=== PATIENT | female | born 1945 | race Hispanic/Latino ===

== ENCOUNTER 2018-07-31 03:30 | Observation (INO) | payer MEDICARE ==
[2018-07-31] MEDS ORDERED: Oxymetazoline 0.05% Nasal Spray (30 ml) NS STA (03:48)
--- NOTE | 2018-07-31 03:55 | ED PDOC ---
Arrival/HPI - General Chief Complaint: ENT Problem Time Seen by Provider: 07/31/18 03:39 Historian: Patient - History of Present Illness Narrative History of Present Illness (Text): 72 year old female, whose past medical history includes type I diabetes, hypertension, thyroid issues, and amyloidosis cancer on remission, presents to the emergency department complaining of nose bleed to the right nostril that woke her up 1 hour prior to arrival. Patient states she pinched her nostrils for 30 minutes, but her nose kept bleeding. Patient denies being on blood thinners. Patient denies any fall or trauma. Patient denies any fever, chills, chest pain, shortness of breath, nausea, vomiting, diarrhea, urinary symptoms, back pain, neck pain, headache, dizziness, or any other complaints. PMD: Time/Duration: Prior to Arrival, 1 hour Symptom Onset: Sudden Symptom Course: Unchanged Activities at Onset: Sleeping Context: Home Past Medical History - Provider Review Nursing Documentation Reviewed: Yes - Infectious Disease Hx of Infectious Diseases: None - Cardiac Hx Hypertension: Yes - Endocrine/Metabolic Hx Diabetes Mellitus Type 2: Yes - Hematological/Oncological Other/Comment: stem cell transplant - Psychiatric Hx Substance Use: No - Anesthesia Hx Anesthesia: No Hx Anesthesia Reactions: No Hx Malignant Hyperthermia: No Family/Social History - Physician Review Nursing Documentation Reviewed: Yes Family/Social History: No Known Family HX Smoking Status: Never Smoked Hx Alcohol Use: No Hx Substance Use: No Allergies/Home Meds Allergies/Adverse Reactions: Allergies filgrastim [From Neupogen] Allergy (Verified 07/31/18 03:43) RASH Home Medications: Home Meds Medication Instructions Recorded Confirmed Allopurinol [Zyloprim] 1 tab PO DAILY 07/31/18 07/31/18 Aspirin [Adult Low Dose Aspirin EC] 81 mg PO DAILY 07/31/18 07/31/18 Cholecalciferol (Vitamin D3) 1 cap PO DAILY 07/31/18 07/31/18 [Vitamin D3] Fenofibrate 54 mg PO DAILY 07/31/18 07/31/18 Insulin Lispro Mix 75/25 [HumaLOG See Protocol SC BID 07/31/18 07/31/18 Mix 75/25] Levothyroxine [Synthroid] 50 mcg PO DAILY 07/31/18 07/31/18 Losartan Potassium 1 tab PO DAILY 07/31/18 07/31/18 [place]-3S/Dha/Epa/Fish Oil [Fish 1 cap PO DAILY 07/31/18 07/31/18 Oil [place]-3 Softgel] Rivastigmine 4.6 mg/24 hr [Exelon 1 ea TD 07/31/18 4.6 Patch] Rosuvastatin Calcium [Crestor] 20 mg PO DAILY 07/31/18 07/31/18 Sodium Bicarbonate Tab 650 mg PO BID 07/31/18 07/31/18 Vit B12/Levomefolate/Vit B6/B2 1 tab PO DAILY 07/31/18 07/31/18 [Cerefolin Caplet] amLODIPine [Norvasc] 5 mg PO DAILY 07/31/18 07/31/18 Review of Systems - Physician Review All systems were reviewed & negative as marked: Yes - Review of Systems Constitutional: absent: Fatigue, Fevers, Other (chills) Eyes: absent: Vision Changes, Eye Pain ENT: Epistaxis. absent: Hearing Changes Respiratory: absent: SOB Cardiovascular: absent: Chest Pain Gastrointestinal: absent: Abdominal Pain, Diarrhea, Nausea, Vomiting, Appetite Changes Genitourinary Female: absent: Dysuria, Frequency, Hematuria Musculoskeletal: absent: Back Pain, Neck Pain Skin: absent: Rash, Pruritis Neurological: absent: Headache, Dizziness Physical Exam Vital Signs Reviewed: Yes Vital Signs Temp Pulse Resp BP Pulse Ox 07/31/18 03:41 98.2 F 110 H 18 142/87 99 Temperature: Afebrile Blood Pressure: Normal Pulse: Tachycardic Respiratory Rate: Normal Appearance: Positive for: Well-Appearing, Non-Toxic, Comfortable Pain Distress: None Mental Status: Positive for: Alert and Oriented X 3 - Systems Exam Head: Present: Atraumatic, Normocephalic Pupils: Present: PERRL Extroacular Muscles: Present: EOMI Conjunctiva: Present: Normal Ears: Present: Normal, NORMAL TM Mouth: Present: Moist Mucous Membranes Pharnyx: Present: Normal. No: ERYTHEMA, EXUDATE Nose (External): Present: Atraumatic Nose (Internal): Present: Epistaxis (R nare), Other (bleeding to the right nare). No: Septal Hematoma Neck: Present: Normal Range of Motion. No: Meningeal Signs, MIDLINE TENDERNESS Respiratory/Chest: Present: Clear to Auscultation, Good Air Exchange. No: Respiratory Distress, Accessory Muscle Use Cardiovascular: Present: Regular Rate and Rhythm, Normal S1, S2. No: Murmurs Abdomen: No: Tenderness, Distention, Peritoneal Signs Back: Present: Normal Inspection. No: CVA Tenderness, Midline Tenderness Upper Extremity: Present: Normal Inspection. No: Cyanosis, Edema Lower Extremity: Present: Normal Inspection. No: Edema Neurological: Present: GCS=15, CN II-XII Intact, Speech Normal Skin: Present: Warm, Dry, Normal Color. No: Rashes Psychiatric: Present: Alert, Oriented x 3, Normal Insight, Normal Concentration Medical Decision Making ED Course and Treatment: 07/31/18 03:49 Impression: 72 year old female presents complaining of epistaxis to the right naris that woke her up from sleep 1 hour prior to arrival. No blood thinners, no trauma. Pt in NAD, mentating well protecting airway. No posterior oropharyngeal blood noted. Differential Diagnosis included but are not limited to: Plan: -- Labs -- Afrin 0.05% -- Epistaxis management -- Reassess and disposition Prior Visits: Notes and results from previous visits were reviewed. Progress Notes: 07/31/18 04:47 Patient refuses rhino rocket epistaxis management procedure. Bleeding stopped spontaneously to the right nare after afrin spray no posterior oral pharyngeal blood noted. 07/31/18 04:52 LILLY on labs, H&H unremarkable. Case discussed with medical case manager and Dr. Nguyen who is aware and agrees with the plan. Accepts patient into hospitalist service. - Lab Interpretations I have reviewed the lab results: Yes - Scribe Statement The provider has reviewed the documentation as recorded by the Cristina Davis Provider Scribe Attestation: All medical record entries made by the Cristina were at my direction and personally dictated by me. I have reviewed the chart and agree that the record accurately reflects my personal performance of the history, physical exam, medical decision making, and the department course for this patient. I have also personally directed, reviewed, and agree with the discharge instructions and disposition. Disposition/Present on Arrival - Present on Arrival Any Indicators Present on Arrival: No History of DVT/PE: No History of Uncontrolled Diabetes: No Urinary Catheter: No History of Decub. Ulcer: No History Surgical Site Infection Following: None - Disposition Have Diagnosis and Disposition been Completed?: Yes Diagnosis: Anterior epistaxis, LILLY (acute kidney injury) Disposition: HOSPITALIZED Disposition Time: 04:56 Patient Problems: Current Active Problems Problem Status Onset Anterior epistaxis Acute LILLY (acute kidney injury) Acute Condition: STABLE
[2018-07-31 04:14] LABS: HEMOGLOBIN 11.7 g/dL (12.0-16.0); MEAN CELL VOLUME 85.5 fl (80.0-105.0); MEAN CORPUSCULAR HEMOGLOBIN 28.8 pg (25.0-35.0); RBC 4.06 {null, 10^6/uL} (3.5-6.1); WHITE BLOOD COUNT 10.5 {null, 10^3/uL} (4.5-11.0)
[2018-07-31 04:15] LABS: BASO # 0.05 {null, K/mm3} (0.0-2.0); BASO % 0.5 % (0.0-3.0); EOS # 0.4 (0.0-0.7); EOS % 3.3 % (1.5-5.0); LYMPH # 2.4 (1.2-3.4); LYMPH % 22.4 % (22.0-35.0); MEAN CORPUSCULAR HGB CONC 33.7 g/dl (31.0-37.0); MEAN PLATELET VOLUME 9.8 fl (7.0-11.0); MONO # 0.9 (0.1-0.6); MONO % 8.7 % (1.0-6.0); RED CELL DISTRIBUTION WIDTH 14.5 % (11.5-14.5)
[2018-07-31 04:18] LABS: INR 1.13; PARTIAL THROMBOPLASTIN TIME 32.4 Seconds (26.9-38.3); PROTHROMBIN TIME 12.5 SECONDS (9.4-12.5)
[2018-07-31 04:28] LABS: ALBUMIN 3.6 g/dL (3.0-4.8)
[2018-07-31] MEDS ORDERED: Sodium Chloride 0.9% 1,000 ML IV STA (05:10)
[2018-07-31] MEDS ORDERED: Dextrose 50% SYRINGE Inj (50 ml) IV PRN (05:13)
[2018-07-31] MEDS ORDERED: Sodium Chloride 0.9% 1,000 ML IV SCH ×2 (05:15→18:52)
--- NOTE | 2018-07-31 05:15 | CP.PCM.HP ---
<Kurt Hanson - Last Filed: 07/31/18 05:59> History of Present Illness - History of Present Illness History of Present Illness: Kurt Hanson PGY2 H&P for Hospitalist Service 72 year old female with past medical history of DM2, hypertension, hypothyroidism, and amyloidosis, presented to the emergency department complaining of nose bleed of the right nostril that woke her up an hour before her arrival to the ED. Patient states she tried to holld pressure on her nose but the bleeding did not subside. Patient is not currently on any blood thinners and denies trauma. denies being on blood thinners. Patient denies any fever, chills, chest pain, shortness of breath, nausea, vomiting, diarrhea, urinary symptoms, back pain, neck pain, headache, dizziness, or any other complaints at this time. PMH:DM2, hypertension, hypothyroidism, and amyloidosis PSH: denies Allergies: filgrastim Family: denies Social: stopped tobacco use in 2006, before that 40 year history, denies alcohol or illicit drug use Meds: See [facility] Nephrology: Nehemiah Present on Admission - Present on Admission Any Indicators Present on Admission: No Review of Systems - Constitutional Constitutional: absent: Anorexia, Chills, Fever, Headache, Weakness - EENT Nose/Mouth/Throat: Epistaxis. absent: Sinus Pain, Sinus Pressure, Bleeding Gums, Dysphagia, Sore Throat - Cardiovascular Cardiovascular: absent: Chest Pain, Dyspnea - Respiratory Respiratory: absent: Cough, Dyspnea, Hemoptysis - Neurological Neurological: absent: Syncope Past Patient History - Infectious Disease Hx of Infectious Diseases: None - Past Social History Smoking Status: Never Smoked - CARDIAC Hx Hypertension: Yes - ENDOCRINE/METABOLIC Hx Diabetes Mellitus Type 2: Yes - HEMATOLOGICAL/ONCOLOGICAL Other/Comment: stem cell transplant - PSYCHIATRIC Hx Substance Use: No - ANESTHESIA Hx Anesthesia: No Hx Anesthesia Reactions: No Hx Malignant Hyperthermia: No Meds Allergies/Adverse Reactions: Allergies Allergy/AdvReac Type Severity Reaction Status Date / Time filgrastim [From Neupogen] Allergy RASH Verified 07/31/18 03:43 Physical Exam - Constitutional Appears: Non-toxic, No Acute Distress - Head Exam Head Exam: ATRAUMATIC, NORMAL INSPECTION, NORMOCEPHALIC - Eye Exam Eye Exam: EOMI, Normal appearance - ENT Exam Additional comments: right nares has epistaxis - Respiratory Exam Respiratory Exam: Clear to Auscultation Bilateral, NORMAL BREATHING PATTERN - Cardiovascular Exam Cardiovascular Exam: REGULAR RHYTHM, +S1, +S2 - GI/Abdominal Exam GI & Abdominal Exam: Soft. absent: Tenderness - Neurological Exam Neurological exam: Alert, Oriented x3 Results - Vital Signs Recent Vital Signs: Last Vital Signs Temp 98.2 F 07/31/18 03:41 Pulse 110 H 07/31/18 03:41 Resp 18 07/31/18 03:41 BP 142/87 07/31/18 03:41 Pulse Ox 99 07/31/18 03:41 - Labs Result Diagrams: 07/31/18 04:00 07/31/18 04:00 Labs: Laboratory Results - last 24 hr 07/31/18 07/31/18 07/31/18 04:00 04:00 04:00 WBC 10.5 RBC 4.06 Hgb 11.7 L Hct 34.7 L MCV 85.5 D MCH 28.8 MCHC 33.7 RDW 14.5 Plt Count 326 MPV 9.8 Neut % (Auto) 65.1 Lymph % (Auto) 22.4 Atlantic % (Auto) 8.7 H Eos % (Auto) 3.3 Baso % (Auto) 0.5 Lymph # (Auto) 2.4 [place] # (Auto) 0.9 H Eos # (Auto) 0.4 Baso # (Auto) 0.05 Absolute Neuts (auto) 6.81 H PT 12.5 INR 1.13 APTT 32.4 Sodium 136 Potassium 4.1 Chloride 106 Carbon Dioxide 19 L Anion Gap 15 BUN 63 H Creatinine 4.2 H Est GFR ( Amer) 13 Est GFR (Non-Af Amer) 10 Random Glucose 206 H Calcium 9.0 Total Bilirubin 0.3 AST 30 ALT 8 Alkaline Phosphatase 100 Total Protein 7.0 Albumin 3.6 Globulin 3.5 Albumin/Globulin Ratio 1.0 L BBK History Checked 07/31/18 04:00 WBC RBC Hgb Hct MCV MCH MCHC RDW Plt Count MPV Neut % (Auto) Lymph % (Auto) Atlantic % (Auto) Eos % (Auto) Baso % (Auto) Lymph # (Auto) [place] # (Auto) Eos # (Auto) Baso # (Auto) Absolute Neuts (auto) PT INR APTT Sodium Potassium Chloride Carbon Dioxide Anion Gap BUN Creatinine Est GFR ( Amer) Est GFR (Non-Af Amer) Random Glucose Calcium Total Bilirubin AST ALT Alkaline Phosphatase Total Protein Albumin Globulin Albumin/Globulin Ratio BBK History Checked No verified bt Assessment & Plan - Assessment and Plan (Free Text) Assessment: 72 year old female with past medical history of DM2, hypertension, hypothyroi dism, and amyloidosis, presented to the emergency department complaining of nose bleed of the right nostril that woke her up an hour before her arrival to the ED. Patient was found to have elevated BUN/Cr. Plan: 1. Epistaxis -Hgb: 11.7 -monitor -patient did not want any packing to be placed -PT/INR within normal range -hold home aspirin 81mg 2. Elevated BUN/Cr -CKD v LILLY on top of CKD -BUN : 63 Cr: 4.2 -NS@100 -urine lytes pending -urine microalbumin pending -continue home meds 3. DM -hemoglobin A1C pending -Insulin sliding scale medium -ACHS -monitor 4. HTN-chronic -holding losartan due to elevated kidney function -contonue amlodipine 5mg Diet: HHD DVT Prophylaxis: Sequential Compression Device <Fina Nguyen - Last Filed: 07/31/18 11:49> Results - Vital Signs Recent Vital Signs: Last Vital Signs Temp 98.2 F 07/31/18 03:41 Pulse 97 H 07/31/18 07:09 Resp 18 07/31/18 07:09 BP 164/81 H 07/31/18 07:09 Pulse Ox 100 07/31/18 07:09 - Labs Result Diagrams: 07/31/18 04:00 07/31/18 04:00 Labs: Laboratory Results - last 24 hr 07/31/18 07/31/18 07/31/18 04:00 04:00 04:00 WBC 10.5 RBC 4.06 Hgb 11.7 L Hct 34.7 L MCV 85.5 D MCH 28.8 MCHC 33.7 RDW 14.5 Plt Count 326 MPV 9.8 Neut % (Auto) 65.1 Lymph % (Auto) 22.4 Atlantic % (Auto) 8.7 H Eos % (Auto) 3.3 Baso % (Auto) 0.5 Lymph # (Auto) 2.4 [place] # (Auto) 0.9 H Eos # (Auto) 0.4 Baso # (Auto) 0.05 Absolute Neuts (auto) 6.81 H PT 12.5 INR 1.13 APTT 32.4 Sodium 136 Potassium 4.1 Chloride 106 Carbon Dioxide 19 L Anion Gap 15 BUN 63 H Creatinine 4.2 H Est GFR ( Amer) 13 Est GFR (Non-Af Amer) 10 POC Glucose (mg/dL) Random Glucose 206 H Calcium 9.0 Total Bilirubin 0.3 AST 30 ALT 8 Alkaline Phosphatase 100 Total Protein 7.0 Albumin 3.6 Globulin 3.5 Albumin/Globulin Ratio 1.0 L Free T4 TSH 3rd Generation Blood Type Blood Type Confirm Antibody Screen BBK History Checked 07/31/18 07/31/18 07/31/18 04:00 04:00 05:15 WBC RBC Hgb Hct MCV MCH MCHC RDW Plt Count MPV Neut % (Auto) Lymph % (Auto) Atlantic % (Auto) Eos % (Auto) Baso % (Auto) Lymph # (Auto) [place] # (Auto) Eos # (Auto) Baso # (Auto) Absolute Neuts (auto) PT INR APTT Sodium Potassium Chloride Carbon Dioxide Anion Gap BUN Creatinine Est GFR ( Amer) Est GFR (Non-Af Amer) POC Glucose (mg/dL) Random Glucose Calcium Total Bilirubin AST ALT Alkaline Phosphatase Total Protein Albumin Globulin Albumin/Globulin Ratio Free T4 0.92 TSH 3rd Generation 6.22 H Blood Type O POSITIVE Blood Type Confirm O POSITIVE Antibody Screen Negative BBK History Checked No verified bt 07/31/18 07/31/18 05:26 07:49 WBC RBC Hgb Hct MCV MCH MCHC RDW Plt Count MPV Neut % (Auto) Lymph % (Auto) Atlantic % (Auto) Eos % (Auto) Baso % (Auto) Lymph # (Auto) [place] # (Auto) Eos # (Auto) Baso # (Auto) Absolute Neuts (auto) PT INR APTT Sodium Potassium Chloride Carbon Dioxide Anion Gap BUN Creatinine Est GFR ( Amer) Est GFR (Non-Af Amer) POC Glucose (mg/dL) 215 H 205 H Random Glucose Calcium Total Bilirubin AST ALT Alkaline Phosphatase Total Protein Albumin Globulin Albumin/Globulin Ratio Free T4 TSH 3rd Generation Blood Type Blood Type Confirm Antibody Screen BBK History Checked Attending/Attestation - Attestation I have personally seen and examined this patient.: Yes I have fully participated in the care of the patient.: Yes I have reviewed all pertinent clinical information: Yes Notes (Text): 07/31/18 11:48 Patient was seen when she was in the ER . Medical record was reviewed.. Agree with history, physical examination, assessment and plan.
[2018-07-31] MEDS ORDERED: Levothyroxine 50 MCG TAB PO SCH (06:00)
[2018-07-31 06:10] LABS: FREE T4 0.92 ng/dL (0.78-2.19)
[2018-07-31] MEDS ORDERED: Nitroglycerin 2% Ointment Foilpak UD TOP STA (06:39)
[2018-07-31] MEDS: Insulin Lispro (humaLOG) MEDIUM Coverage SC SCH ×2 (08:00→11:53)
--- NOTE | 2018-07-31 09:34 | CP.PCM.PN ---
Subjective - Date & Time of Evaluation Date of Evaluation: 07/31/18 Time of Evaluation: 09:32 - Subjective Subjective: When I was examining patient , she started to have nose bleeding . I applied firm manual pressure for 20 minutes . Bleeding stoped. BP was 173/55 . Nitropaste 1/2 " was ordered and applied . Objective - Vital Signs/Intake and Output Vital Signs (last 24 hours): Temp Pulse Resp BP Pulse Ox 98.2 F 97 H 18 164/81 H 100 07/31/18 03:41 07/31/18 07:09 07/31/18 07:09 07/31/18 07:09 07/31/18 07:09 - Medications Medications: Current Medications Allopurinol (Zyloprim) 100 mg PO DAILY [facility] Amlodipine Besylate (Norvasc) 5 mg PO DAILY [facility] Atorvastatin Calcium (Lipitor) 80 mg PO DIN [facility] Cholecalciferol (Vitamin D) 2,000 intlu PO DAILY [facility] Dextrose (Dextrose 50% Inj) 0 ml IV STAT PRN; Protocol PRN Reason: Hypoglycemia Protocol Sodium Chloride (Sodium Chloride 0.9%) 1,000 mls @ 100 mls/hr IV .Q10H TRE Last Admin: 07/31/18 08:02 Dose: 100 mls/hr Dextrose (Dextrose 5% In Water 1000 Ml) 1,000 mls @ 0 mls/hr IV .Q0M PRN; Protocol PRN Reason: Hypoglycemia Protocol Insulin Human Lispro (Humalog Med) 0 units SC ACHS [facility]; Protocol Last Admin: 07/31/18 08:00 Dose: 3 units Levothyroxine Sodium (Synthroid) 50 mcg PO 0600 [facility] Fenofibrate [ Fenofibrate] 54 Mg ( Home Med) 54 mg PO DAILY [facility] Vit B12/Levomefolate /Vit B6/B2 [ Cerefolin Caplet] ( Home Med) 1 tab PO DAILY [facility] [id number] Ethyl Esters (Lovaza) 1 gm PO DAILY [facility] Rivastigmine (Exelon 4.6 Mg/24 Hr Patch) 1 patch TD DAILY [facility] Sodium Bicarbonate (Sodium Bicarbonate Tab) 650 mg PO BID [facility] - Labs Labs: 07/31/18 04:00 07/31/18 04:00 PT 12.5 SECONDS (9.4-12.5) 07/31/18 04:00 INR 1.13 07/31/18 04:00 APTT 32.4 Seconds (26.9-38.3) 07/31/18 04:00
[2018-07-31] MEDS ORDERED: B2 PO SCH (10:00)
[2018-07-31] MEDS ORDERED: Cholecalciferol 1,000 INTLU TAB PO SCH (10:00)
[2018-07-31] MEDS ORDERED: FENOFIBRATE 54 MG PO SCH (10:00)
[2018-07-31] MEDS ORDERED: VIT B6 PO SCH (10:00)
[2018-07-31] MEDS ORDERED: VIT B12 PO SCH (10:00)
[2018-07-31] MEDS ORDERED: LEVOMEFOLATE PO SCH (10:00)
[2018-07-31] MEDS ORDERED: Omega-3-Acid Ethyl Esters 1 GM Cap PO SCH (10:00)
[2018-07-31 15:12] VITALS: BMI 43.0
[2018-07-31 15:47] LABS: PH,URINE 5.5 (4.7-8.0); URINE BILIRUBIN NEGATIVE (NEGATIVE); URINE BLOOD SMALL (NEGATIVE); URINE GLUCOSE (UA) 500 mg/dL (NEGATIVE); URINE LEUKOCYTE ESTERASE NEGATIVE Leu/uL (NEGATIVE); URINE PROTEIN >=300 mg/dL (<30 mg/dL); URINE UROBILINOGEN 0.2 E.U./dL (<1 E.U./dL)
[2018-07-31 15:49] LABS: URINE APPEARANCE SLIGHT-CLOUDY (CLEAR); URINE COLOR LIGHT YELLOW (YELLOW)
[2018-07-31 15:52] LABS: URINE BACTERIA FEW /hpf; URINE RBC 0 - 2 /hpf (0-2); URINE WBC 0 - 2 /hpf (0-6)
[2018-07-31] MEDS: Insulin Lispro (HUMAlog) HIGH Coverage SC SCH ×2 (16:33→22:30)
[2018-07-31 22:46] VITALS: O2SAT 97
--- NOTE | 2018-08-01 07:43 | CP.PCM.DIS ---
<Lou Guerrero - Last Filed: 08/01/18 16:06> Provider - Provider Date of Admission: 07/31/18 04:54 Attending physician: Zoë Lewis MD Primary care physician: Dr. Collado Consults: 07/31/18 06:01 Physician Consult Routine Comment: Consulting Provider: Bhavik Spaulding Consulting Physician: Bhavik Spaulding Reason for Consult: CKD Time Spent in preparation of Discharge (in minutes): 45 Hospital Course - Lab Results Lab Results: Most Recent Lab Values WBC 10.5 10^3/uL (4.5-11.0) 07/31/18 04:00 RBC 4.06 10^6/uL (3.5-6.1) 07/31/18 04:00 Hgb 11.7 g/dL (12.0-16.0) L 07/31/18 04:00 Hct 34.7 % (36.0-48.0) L 07/31/18 04:00 MCV 85.5 fl (80.0-105.0) D 07/31/18 04:00 MCH 28.8 pg (25.0-35.0) 07/31/18 04:00 MCHC 33.7 g/dl (31.0-37.0) 07/31/18 04:00 RDW 14.5 % (11.5-14.5) 07/31/18 04:00 Plt Count 326 10^3/uL (120.0-450.0) 07/31/18 04:00 MPV 9.8 fl (7.0-11.0) 07/31/18 04:00 Neut % (Auto) 65.1 % (50.0-68.0) 07/31/18 04:00 Lymph % (Auto) 22.4 % (22.0-35.0) 07/31/18 04:00 [place] % (Auto) 8.7 % (1.0-6.0) H 07/31/18 04:00 Eos % (Auto) 3.3 % (1.5-5.0) 07/31/18 04:00 Baso % (Auto) 0.5 % (0.0-3.0) 07/31/18 04:00 Lymph # (Auto) 2.4 (1.2-3.4) 07/31/18 04:00 [place] # (Auto) 0.9 (0.1-0.6) H 07/31/18 04:00 Eos # (Auto) 0.4 (0.0-0.7) 07/31/18 04:00 Baso # (Auto) 0.05 K/mm3 (0.0-2.0) 07/31/18 04:00 Absolute Neuts (auto) 6.81 (1.4-6.5) H 07/31/18 04:00 PT 12.5 SECONDS (9.4-12.5) 07/31/18 04:00 INR 1.13 07/31/18 04:00 APTT 32.4 Seconds (26.9-38.3) 07/31/18 04:00 Sodium 136 mmol/L (132-148) 07/31/18 04:00 Potassium 4.1 mmol/L (3.6-5.0) 07/31/18 04:00 Chloride 106 mmol/L (98-107) 07/31/18 04:00 Carbon Dioxide 19 mmol/L (21-33) L 07/31/18 04:00 Anion Gap 15 (10-20) 07/31/18 04:00 BUN 63 mg/dL (7-21) H 07/31/18 04:00 Creatinine 4.2 mg/dl (0.7-1.2) H 07/31/18 04:00 Est GFR ( Amer) 13 07/31/18 04:00 Est GFR (Non-Af Amer) 10 07/31/18 04:00 POC Glucose (mg/dL) 147 mg/dL (65-110) H 08/01/18 06:21 Random Glucose 206 mg/dL (70-110) H 07/31/18 04:00 Hemoglobin A1c 7.2 % (4.2-6.5) H 07/31/18 04:00 Calcium 9.0 mg/dL (8.4-10.5) 07/31/18 04:00 Total Bilirubin 0.3 mg/dL (0.2-1.3) 07/31/18 04:00 AST 30 U/L (14-36) 07/31/18 04:00 ALT 8 U/L (7-56) 07/31/18 04:00 Alkaline Phosphatase 100 U/L (38-126) 07/31/18 04:00 Total Protein 7.0 g/dL (5.8-8.3) 07/31/18 04:00 Albumin 3.6 g/dL (3.0-4.8) 07/31/18 04:00 Globulin 3.5 gm/dL 07/31/18 04:00 Albumin/Globulin Ratio 1.0 (1.1-1.8) L 07/31/18 04:00 Free T4 0.92 ng/dL (0.78-2.19) 07/31/18 04:00 TSH 3rd Generation 6.22 mIU/mL (0.46-4.68) H 07/31/18 04:00 Urine Color Light yellow (YELLOW) 07/31/18 15:42 Urine Appearance Slight-cloudy (CLEAR) 07/31/18 15:42 Urine pH 5.5 (4.7-8.0) 07/31/18 15:42 Ur Specific [place] 1.015 (1.005-1.035) 07/31/18 15:42 Urine Protein >=300 mg/dL (<30 mg/dL) H 07/31/18 15:42 Urine Glucose (UA) 500 mg/dL (NEGATIVE) H 07/31/18 15:42 Urine Ketones Negative mg/dL (NEGATIVE) 07/31/18 15:42 Urine Blood Small (NEGATIVE) H 07/31/18 15:42 Urine Nitrate Negative (NEGATIVE) 07/31/18 15:42 Urine Bilirubin Negative (NEGATIVE) 07/31/18 15:42 Urine Urobilinogen 0.2 E.U./dL (<1 E.U./dL) 07/31/18 15:42 Ur Leukocyte Esterase Negative [place]/uL (NEGATIVE) 07/31/18 15:42 Urine RBC 0 - 2 /hpf (0-2) 07/31/18 15:42 Urine WBC 0 - 2 /hpf (0-6) 07/31/18 15:42 Ur Epithelial Cells 1 - 3 /hpf (0-5) 07/31/18 15:42 Urine Bacteria Few /hpf (NONE) 07/31/18 15:42 Hyaline Casts 2 - 5 /hpf (NONE) 07/31/18 15:42 Ur Random Creatinine 61 mg/dL 07/31/18 15:42 U Random Total Protein 856 mg/L 07/31/18 15:42 Ur Random Sodium 26 meq/L 07/31/18 15:42 Ur Random Uric Acid 14.4 mg/dL 07/31/18 15:42 Urine Microalbumin > 950.0 mg/L (0.0-16.6) H 07/31/18 15:42 Blood Type O POSITIVE 07/31/18 04:00 Blood Type Confirm O POSITIVE 07/31/18 05:15 Antibody Screen Negative 07/31/18 04:00 BBK History Checked No verified bt 07/31/18 04:00 - Hospital Course Hospital Course: Upon Admission "72 year old female with past medical history of DM2, hypertension, hypothyroidism, and amyloidosis, presented to the emergency department complaining of nose bleed of the right nostril that woke her up an hour before her arrival to the ED. Patient states she tried to holld pressure on her nose but the bleeding did not subside. Patient is not currently on any blood thinners and denies trauma. denies being on blood thinners. Patient denies any fever, chills, chest pain, shortness of breath, nausea, vomiting, diarrhea, urinary symptoms, back pain, neck pain, headache, dizziness, or any other complaints at this time." Hospital Course Patient admitted to med/surg for further management. H&H and VSS on admission. Nephrology was consulted for further management of LILLY. Patient did not want any packing to be placed. ASA was placed on hold. Overnight patient started to have another episode of epistaxis and house doc placed manual pressure for 20min and had nitropaste 1/2 applied. Patient's bleeding stopped and she had no further acute complaints overnight. The next day the patient was seen and examined with her son at bedside. She was eager to leave and despite going over her blood work and necessity to be seen by nephrology inpatient, patient was adamant on leaving. She and her son stated she had good follow up with her operations representative Dr. De La Rosa. Patient was counseled thoroughly on the risks of leaving and the benefits of staying and being taken care of at the hospital. Patient refused further treatment and management and decided to sign out against medical advice. Nurse was at bedside to witness. The following instructions were given to the patient upon signing out AMA: Please follow up with your PMD Dr. Collado within 3-5 days. Please follow up with your [facility] Lab Technician Dr. De La Rosa within 5-7 days. You have also been given a referral for ENT group Dr. Chicas and Dr. Bertrand. Please follow up with ENT within 3-5 days. Please resume all home medications but please STOP taking Aspirin until you see your PMD. If symptoms return please visit your nearest Emergency Room Department. Patient voiced understanding and agreement with plan. Son at bedside also voiced understanding and agreement with plan. Discharge Exam - Head Exam Head Exam: ATRAUMATIC, NORMAL INSPECTION, NORMOCEPHALIC - Eye Exam Eye Exam: EOMI, Normal appearance. absent: Conjunctival injection, Scleral icterus - ENT Exam ENT Exam: Mucous Membranes Moist - Respiratory Exam Respiratory Exam: NORMAL BREATHING PATTERN. absent: Accessory Muscle Use, Rales, Rhonchi, Wheezes, Respiratory Distress - Cardiovascular Exam Cardiovascular Exam: REGULAR RHYTHM, RRR, +S1, +S2 - GI/Abdominal Exam GI & Abdominal Exam: Normal Bowel Sounds, Soft. absent: Distended, Firm, Guarding, Tenderness - Extremities Exam Extremities exam: normal capillary refill, pedal pulses present - Neurological Exam Neurological exam: Alert, CN II-XII Intact, Oriented x3 - Psychiatric Exam Psychiatric exam: Normal Affect, Normal Mood - Skin Skin Exam: Dry, Intact, Normal Color, Warm Discharge Plan - Follow Up Plan Condition: STABLE Disposition: AGAINST MEDICAL ADVICE Instructions: Dangers of Secondhand Smoke, Acute Kidney Failure (DC), Nosebleeds (DC) Additional Instructions: Please follow up with your PMD Dr. Collado within 3-5 days. Please follow up with your [facility] Lab Technician Dr. De La Rosa within 5-7 days. You have also been given a referral for ENT group Dr. Chicas and Dr. Bertrand. Please follow up with ENT within 3-5 days. Please resume all home medications but please STOP taking Aspirin until you see your PMD. If symptoms return please visit your nearest Emergency Room Department. Referrals: Hilton Bertrand DO [Staff Provider] - Jeancarlos Chicas DO [Staff Provider] - Rik Collado MD [Staff Provider] - Seth De La Rosa MD [Non-Staff] - <Irfan,Mohammad - Last Filed: 08/03/18 16:24> Provider - Provider Date of Admission: 07/31/18 04:54 Attending physician: Zoë Lewis MD Consults: 07/31/18 06:01 Physician Consult Routine Comment: Consulting Provider: Bhavik Spaulding Consulting Physician: Bhavik Spaulding Reason for Consult: CKD Hospital Course - Lab Results Lab Results: Most Recent Lab Values WBC 9.0 10^3/uL (4.5-11.0) 08/01/18 07:30 RBC 3.62 10^6/uL (3.5-6.1) 08/01/18 07:30 Hgb 10.0 g/dL (12.0-16.0) L 08/01/18 07:30 Hct 30.9 % (36.0-48.0) L 08/01/18 07:30 MCV 85.4 fl (80.0-105.0) 08/01/18 07:30 MCH 27.6 pg (25.0-35.0) 08/01/18 07:30 MCHC 32.4 g/dl (31.0-37.0) 08/01/18 07:30 RDW 14.5 % (11.5-14.5) 08/01/18 07:30 Plt Count 307 10^3/uL (120.0-450.0) 08/01/18 07:30 MPV 9.5 fl (7.0-11.0) 08/01/18 07:30 Neut % (Auto) 65.1 % (50.0-68.0) 07/31/18 04:00 Lymph % (Auto) 22.4 % (22.0-35.0) 07/31/18 04:00 [place] % (Auto) 8.7 % (1.0-6.0) H 07/31/18 04:00 Eos % (Auto) 3.3 % (1.5-5.0) 07/31/18 04:00 Baso % (Auto) 0.5 % (0.0-3.0) 07/31/18 04:00 Lymph # (Auto) 2.4 (1.2-3.4) 07/31/18 04:00 [place] # (Auto) 0.9 (0.1-0.6) H 07/31/18 04:00 Eos # (Auto) 0.4 (0.0-0.7) 07/31/18 04:00 Baso # (Auto) 0.05 K/mm3 (0.0-2.0) 07/31/18 04:00 Absolute Neuts (auto) 6.81 (1.4-6.5) H 07/31/18 04:00 PT 12.5 SECONDS (9.4-12.5) 07/31/18 04:00 INR 1.13 07/31/18 04:00 APTT 32.4 Seconds (26.9-38.3) 07/31/18 04:00 Sodium 140 mmol/L (132-148) 08/01/18 07:30 Potassium 4.4 mmol/L (3.6-5.0) 08/01/18 07:30 Chloride 109 mmol/L (98-107) H 08/01/18 07:30 Carbon Dioxide 22 mmol/L (21-33) 08/01/18 07:30 Anion Gap 13 (10-20) 08/01/18 07:30 BUN 68 mg/dL (7-21) H 08/01/18 07:30 Creatinine 4.8 mg/dl (0.7-1.2) H 08/01/18 07:30 Est GFR ( Amer) 11 08/01/18 07:30 Est GFR (Non-Af Amer) 9 08/01/18 07:30 POC Glucose (mg/dL) 147 mg/dL (65-110) H 08/01/18 06:21 Random Glucose 148 mg/dL (70-110) H 08/01/18 07:30 Hemoglobin A1c 7.2 % (4.2-6.5) H 07/31/18 04:00 Calcium 9.1 mg/dL (8.4-10.5) 08/01/18 07:30 Total Bilirubin 0.2 mg/dL (0.2-1.3) 08/01/18 07:30 AST 32 U/L (14-36) 08/01/18 07:30 ALT 14 U/L (7-56) 08/01/18 07:30 Alkaline Phosphatase 98 U/L (38-126) 08/01/18 07:30 Total Protein 6.7 g/dL (5.8-8.3) 08/01/18 07:30 Albumin 3.3 g/dL (3.0-4.8) 08/01/18 07:30 Globulin 3.3 gm/dL 08/01/18 07:30 Albumin/Globulin Ratio 1.0 (1.1-1.8) L 08/01/18 07:30 Free T4 0.92 ng/dL (0.78-2.19) 07/31/18 04:00 TSH 3rd Generation 6.22 mIU/mL (0.46-4.68) H 07/31/18 04:00 Urine Color Light yellow (YELLOW) 07/31/18 15:42 Urine Appearance Slight-cloudy (CLEAR) 07/31/18 15:42 Urine pH 5.5 (4.7-8.0) 07/31/18 15:42 Ur Specific [place] 1.015 (1.005-1.035) 07/31/18 15:42 Urine Protein >=300 mg/dL (<30 mg/dL) H 07/31/18 15:42 Urine Glucose (UA) 500 mg/dL (NEGATIVE) H 07/31/18 15:42 Urine Ketones Negative mg/dL (NEGATIVE) 07/31/18 15:42 Urine Blood Small (NEGATIVE) H 07/31/18 15:42 Urine Nitrate Negative (NEGATIVE) 07/31/18 15:42 Urine Bilirubin Negative (NEGATIVE) 07/31/18 15:42 Urine Urobilinogen 0.2 E.U./dL (<1 E.U./dL) 07/31/18 15:42 Ur Leukocyte Esterase Negative [place]/uL (NEGATIVE) 07/31/18 15:42 Urine RBC 0 - 2 /hpf (0-2) 07/31/18 15:42 Urine WBC 0 - 2 /hpf (0-6) 07/31/18 15:42 Ur Epithelial Cells 1 - 3 /hpf (0-5) 07/31/18 15:42 Urine Bacteria Few /hpf (NONE) 07/31/18 15:42 Hyaline Casts 2 - 5 /hpf (NONE) 07/31/18 15:42 Ur Random Creatinine 61 mg/dL 07/31/18 15:42 U Random Total Protein 856 mg/L 07/31/18 15:42 Ur Random Sodium 26 meq/L 07/31/18 15:42 Ur Random Uric Acid 14.4 mg/dL 07/31/18 15:42 Urine Microalbumin > 950.0 mg/L (0.0-16.6) H 07/31/18 15:42 Blood Type O POSITIVE 07/31/18 04:00 Blood Type Confirm O POSITIVE 07/31/18 05:15 Antibody Screen Negative 07/31/18 04:00 BBK History Checked No verified bt 07/31/18 04:00 Attending/Attestation - Attestation I have personally seen and examined this patient.: No I have fully participated in the care of the patient.: Yes I have reviewed all pertinent clinical information, including history, physical exam and plan: Yes Notes (Text): 08/03/18 16:22 Patient left the hospital before seeing by me. She was advised by director medical economics to see her PMD and [facility] Technician as early as possible.
[2018-08-01 07:50] LABS: MEAN CELL VOLUME 85.4 fl (80.0-105.0); MEAN CORPUSCULAR HEMOGLOBIN 27.6 pg (25.0-35.0); MEAN CORPUSCULAR HGB CONC 32.4 g/dl (31.0-37.0); MEAN PLATELET VOLUME 9.5 fl (7.0-11.0); RBC 3.62 {null, 10^6/uL} (3.5-6.1); RED CELL DISTRIBUTION WIDTH 14.5 % (11.5-14.5)
[2018-08-01] MEDS: Insulin Lispro (HUMAlog) HIGH Coverage SC SCH (07:59)
[2018-08-01 08:06] LABS: ALBUMIN 3.3 g/dL (3.0-4.8); CALCIUM 9.1 mg/dL (8.4-10.5)
[2018-08-01 08:11] VITALS: BP 139/74; PULSE 92; RESP 18; TEMP 98.1
== END 2018-08-01 10:41 | disposition left against medical advice (07) ==
LOC: ED 03:30 → ERH 04:54 → 5RSO 07:25
PROVIDERS: ADMIT Hospitalist; ATTEND Internal Medicine
DX: N17.9 Acute kidney failure, unspecified (principal); R04.0 Epistaxis; E11.9 Type 2 diabetes mellitus without complications; I10 Essential (primary) hypertension; E03.9 Hypothyroidism, unspecified; Z53.20 Procedure and treatment not carried out because of patient's decision for unspecified reasons; Z79.890 Hormone replacement therapy; Z79.82 Long term (current) use of aspirin
CPT/HCPCS: 36415; 80053; 81001; 82043; 82570; 82948; 83036; 84156; 84300; 84439; 84443; 84560; 85025; 85027; 85610; 85730; 86850; 86900; 99284; G0378; J7030